=== PATIENT | male | born 1965 | race Caucasian/White ===

== ENCOUNTER 2019-01-01 07:36 | Day surgery (SDC) | payer OTHER ==
--- NOTE | 2018-12-31 13:54 | PREOPHP ---
Scheduled for outpatient surgery, 01/01/2019. HISTORY OF PRESENT ILLNESS: The patient is a 53-year-old male in stable health with a symptomatic recurrent epigastric hernia. The patient underwent laparoscopic repair of a hernia above the umbilicus in the midline in 2001 utilizing mesh. He states that the hernia recurred in 2018 and he has occasional pain there. He is scheduled to undergo open repair of recurrent epigastric hernia with mesh. MEDICATIONS: 1. Lisinopril. 2. Amlodipine. 3. Aspirin 81 mg. ALLERGIES: NONE. PAST SURGICAL HISTORY: Only the above. SOCIAL HISTORY: The patient denies any gastrointestinal or genitourinary symptoms. PHYSICAL EXAMINATION: VITAL SIGNS: The patient is 5 feet, 5 inches, 223 pounds. HEENT: Within normal limits. LUNGS: Clear. HEART: Regular rate, rhythm. BREASTS: Without masses. ABDOMEN: Obese. There is a mild diastasis rectus. There is a 3 x 3 cm chronically incarcerated epigastric hernia approximately 3 cm above the umbilicus. No other evidence of abdominal wall hernia. RECTAL: Per primary care. EXTREMITIES: Without edema. NEUROLOGIC: Physiologic. IMPRESSION: Recurrent epigastric hernia, chronically incarcerated. PLAN: Open repair of recurrent epigastric hernia with mesh. I have had a full discussion with the patient regarding the nature of his condition and the nature of the surgery, indications, alternatives, options and risks including bleeding, infection, recurrence despite use of mesh, scarring, injury to adjacent structures or organs, anesthetic reactions, et cetera. All questions have been answered. He understands and agrees to proceed. Dictated By: KAMRYN UPTON/KRISTIAN Conf#: [id number] DID#: [id number] ODALIS
[~2019-01-01] VITALS: Ht 165.1 cm; Wt 99.9 kg
[2019-01-01] VITALS (19 sets, daily range): BP systolic 121–168; BP diastolic 67–93; PULSE 68–79; RESP 12–24; Ht 165.1 cm; Wt 99.9 kg
[~2019-01-01 07:36] MED LIST: CEFAZOLIN 1 GM INJ ONE; DESFLURANE 15 MIN ONE; DEXAMETHASONE 4 MG/ML 5 ML INJ ONE; GLYCOPYRROLATE 0.4 MG INJ ONE; LIDOCAINE 2% (SDV) 5 ML INJ ONE; NEOSTIGMINE 3 MG/3 ML SYRINGE ONE; ONDANSETRON 4 MG INJ ONE; PROPOFOL 200 MG INJ ONE; ROCURONIUM 50 MG INJ ONE; SUCCINYLCHOLINE CHLORIDE 100 MG/5 ML SYG IV ONE; SUGAMMADEX SODIUM 200 MG/2 ML VIAL IV ONE
[2019-01-01] MEDS ORDERED: MIDAZOLAM 1 MG/ML 2 ML INJ ONE (10:39)
[2019-01-01] MEDS ORDERED: FENTAnyl 50 MCG/ML VIAL ONE (10:39)
[2019-01-01] MEDS ORDERED: METOCLOPRAMIDE 10 MG INJ ONE (10:41)
[2019-01-01] MEDS ORDERED: LIDOCAINE 1% (MPF) 30 ML INJ ONE (11:11)
[2019-01-01] MEDS ORDERED: POLYMYXIN/BACITRACIN 1L IRRIG ONE (11:11)
[2019-01-01] MEDS ORDERED: BUPIVACAINE 0.25% (MPF) 30 ML INJ ONE (11:11)
--- NOTE | 2019-01-01 11:11 | HPN ---
Date/Time of Note Date/Time of Note DATE: 01/01/19 TIME: 11:11 Interval H&P Admission Note Pt. seen H&P reviewed: No system changes KAMYRN ROME Jan 01, 2019 11:11
--- NOTE | 2019-01-01 11:43 | PREAC ---
Date/Time of Note Date/Time of Note DATE: 01/01/19 TIME: 11:42 Anesthesia Eval and Record Evaluation Time Pre-Procedure Interview DATE: 01/01/19 TIME: 11:42 Age 53 Sex male NPO: 8 hrs Preoperative diagnosis recurrent epigastric hernia Planned procedure open repair of recurrent epigastric hernia Past Medical History Past Medical History: Includes Cardio: HTN, Dyslipidemia GI: Morbid obesity Surgery & Anesthesia Issues No known issue Meds Anticoagulation: No Beta Brian within 24 hr: No Reason Beta Brian not given: Pt. not on B-Brian No Active Prescriptions or Reported Meds Meds reviewed: Yes Allergies Coded Allergies: No Known Allergy (Unverified , 01/01/19) Allergies Reviewed: Yes Labs/Studies Labs Reviewed: Reviewed by anesthesiologist Result Diagram: 01/01/19 1020 01/01/19 1020 Laboratory Tests 01/01/19 10:20 test: N/A Studies: ECG Pre-procedure Exam Last vitals Vital Signs Date Temp Pulse Resp B/P (MAP) Pulse Ox O2 O2 Flow FiO2 Time Delivery Rate 01/01/19 97.8 69 16 156/86 96 Room Air 10:40 (109) Airway: Adequate mouth opening, Adequate thyromental dist Mallampati: Mallampati IV Teeth: Normal Lung: Normal Heart: Normal ASA Physical Status ASA physical status: 3 Emergency: None Planned Anesthetic General/MAC: ETT Planned Pain Management Single shot nerve block, Parenteral pain med, Local by surgeon Pre-operative Attestations Prior to commencing anesthesia and surgery, the patient was re-evaluated, there was verification of: *The patient's identity *The results of appropriate recent lab work and preoperative vital signs *The above evaluation not changing prior to induction *Anesthetic plan, risk benefits, alternative and complications discussed with patient/family; questions answered; patient/family understands, accepts and wishes to proceed. SARAH YEAGER MD Jan 01, 2019 11:43
[2019-01-01] MEDS ORDERED: DIPHENHYDRAMINE 50 MG INJ IV PRN (12:00)
[2019-01-01] MEDS ORDERED: LABETALOL HCL 20MG INJ IV PRN (12:00)
[2019-01-01] MEDS ORDERED: LEVALBUTEROL (NEB) 1.25 MG/0.5 ML AMP HHN PRN (12:00)
[2019-01-01] MEDS ORDERED: HYDROmorphONE 1 MG/5 ML IV SYRINGE IV PRN ×2 (12:00)
[2019-01-01] MEDS ORDERED: MEPERIDINE 25 MG INJ IV PRN (12:00)
[2019-01-01] MEDS ORDERED: FENTAnyl 50 MCG/ML VIAL IV PRN (12:00)
[2019-01-01] MEDS ORDERED: KETOROLAC 30 MG INJ IV PRN (12:00)
[2019-01-01] MEDS ORDERED: hydrALAzine 20 MG INJ IV PRN (12:00)
[2019-01-01] MEDS ORDERED: ONDANSETRON 4 MG INJ IV PRN (12:00)
[2019-01-01] MEDS ORDERED: ROPIVACAINE 0.5 % 30 ML VIAL ONE (12:31)
--- NOTE | 2019-01-01 13:03 | SIPON ---
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
[2019-01-01] MEDS ORDERED: IPRATROPIUM (NEB) 0.5 MG/2.5 ML AMP HHN ONE (14:00)
[2019-01-01] MEDS: HYDROmorphONE 1 MG/5 ML IV SYRINGE IV PRN ×2 (14:02→14:15)
[2019-01-01] MEDS: FENTAnyl 50 MCG/ML VIAL IV PRN ×2 (14:03→14:17)
--- NOTE | 2019-01-01 14:27 | RADRPT ---
Vent Rate: 67 bpm RR Interval: 892 msec OK Interval: 160 msec QRS Duration: 93 msec QT Interval: 393 msec QTC Interval: 416 msec P-R-T [place]: 61 - 71 - 93 degrees Sinus rhythm...normal P axis, V-rate 50- 99 Nonspecific T abnormalities, lateral leads...T <-0.10mV, I aVL V5 V6 Lead(s) aVL were not used for morphology analysis Electronically Signed By: Duke Levi
--- NOTE | 2019-01-01 14:55 | PAC ---
Date/Time of Note Date/Time of Note DATE: 01/01/19 TIME: 14:55 Post-Anesthesia Notes Post-Anesthesia Note Last documented vital signs Vital Signs Date Temp Pulse Resp B/P (MAP) Pulse Ox O2 O2 Flow FiO2 Time Delivery Rate 01/01/19 72 15 121/72 96 Room Air 14:17 (88) 01/01/19 2.0 13:52 01/01/19 98.9 13:27 Activity: WNL Respiratory function: WNL Cardiovascular function: WNL Mental status: Baseline Pain reasonably controlled: Yes Hydration appropriate: Yes Nausea/Vomiting absent: Yes SARAH YEAGER MD Jan 01, 2019 14:55
--- NOTE | 2019-01-01 19:01 | OPR ---
DATE OF OPERATION: 01/01/2019 SURGEON: Kamryn Tabor MD [facility] CONSULTANT: None. ANESTHESIOLOGIST: Dr. Clark. TYPE OF ANESTHESIA: General. PREOPERATIVE DIAGNOSIS: Recurrent epigastric hernia. POSTOPERATIVE DIAGNOSIS: Recurrent epigastric hernia. OPERATION PERFORMED: Open repair of recurrent epigastric hernia with mesh. INDICATIONS AND FINDINGS: The patient had a prior laparoscopic repair of epigastric hernia with mesh years ago, which recurred one year ago. He presented with a chronically incarcerated 4 x 5 cm protrusion. DESCRIPTION OF PROCEDURE: The patient was taken to the operating room and under general anesthesia, with sequential compression device stockings in place, he was prepped and draped in the usual fashion. The hernia was located 3 cm above the umbilicus, presenting to the right of midline. A transverse incision was made, achieving hemostasis with cautery. The hernia protrusion was readily identified and circumferentially dissected down to the fascia. The fascial disruption was extended in transverse orientation to permit reduction of the properitoneal fat without entry into the free peritoneal cavity. The fascia was cleared circumferentially on the undersurface. There was too much tension to do a primary repair. I used a small [place] Ventralex hernia patch 4.3 cm in diameter, which fit nicely into the defect, with good extension of at least 1 cm. Using interrupted horizontal mattress 0 Prolene sutures, the mesh was sutured circumferentially. The field was irrigated with antibiotic solution. Hemostasis was secured. The strap was cut off. With interrupted inverted 0 Prolene sutures, I was able to bring the fascial edges together over the repair without distorting the mesh. Additional antibiotic irrigation was utilized and then the subcutaneous tissue was closed with interrupted 3-0 Vicryl and the skin closed with continuous 4-0 Monocryl subcuticular suture. Mastisol and 1/2-inch Steri-Strips were applied, followed by dry sterile dressing. Final sponge and needle counts were correct. A dressing with slight pressure was applied. The patient tolerated the procedure well and left the operating room in good condition. Dictated By: KAMRYN UPTON/KRISTIAN Conf#: [id number] DID#: [id number] ODALIS
== END 2019-01-01 15:08 | disposition home or self-care (01) ==
LOC: SDS 07:36
PROVIDERS: ATTEND Surgery
DX: K43.2 Incisional hernia without obstruction or gangrene (principal); I10 Essential (primary) hypertension; E78.5 Hyperlipidemia, unspecified
CPT/HCPCS: 49570; 71045; 80053; 81003; 85025; 85610; 85730; 93005; 94664; C1781; J0360; J0690; J1100; J1170; J2250; J2405; J2710; J2765; J2795; J3010; Z7512; Z7610